=== PATIENT | female | born 1955 | race Caucasian/White ===

== ENCOUNTER → 2021-02-05 09:05 | Outpatient (CLI) | payer MEDICARE, SELFPAY ==
[2021-02-05] MEDS: COVID-19 VACC #1, MRNA(MOD) 100 MCG/0.5 ML VIAL IM (09:16)
== END ==
PROVIDERS: Visit Provider Internal Medicine
DX: Z23 Encounter for immunization (principal)
CPT/HCPCS: 0011A; 91301

== ENCOUNTER → 2021-03-06 09:54 | Outpatient (CLI) | payer MEDICARE, SELFPAY ==
[2021-03-06] MEDS: COVID-19 VACC #2, MRNA(MOD) 100 MCG/0.5 ML VIAL IM (10:09)
== END ==
PROVIDERS: Visit Provider Internal Medicine
DX: Z23 Encounter for immunization (principal)
CPT/HCPCS: 0012A; 91301

== ENCOUNTER → 2021-03-12 18:49 | Outpatient (CLI) | payer OTHER, SELFPAY ==
[2021-03-12 19:33] LABS: COVID19 -Nasal RAPID Negative (Negative)
== END ==
PROVIDERS: Visit Provider Physician Assistant
DX: J34.89 Other specified disorders of nose and nasal sinuses (principal); Z20.822 Contact with and (suspected) exposure to COVID-19
CPT/HCPCS: 87635

== ENCOUNTER → 2021-04-04 10:21 | Outpatient (CLI) | payer MEDICARE, MEDICAID, SELFPAY ==
[2021-04-04 11:36] LABS: Add Manual Diff / Slide Review NO; Basophils Absolute Auto 100 /uL (0-100); Eosinophils Absolute Auto 300 /uL (0-450); Eosinophils Percent Auto 2.5 % (2-4); Hemoglobin 12.1 g/dL (12.0-16.0); Lymphocytes Absolute Auto 2800 /uL (1100-4500); Lymphocytes Percent Auto 26.8 % (25-40); Mean Corpuscular HGB Conc 32.7 % (30-36); Mean Corpuscular Hemoglobin 28.7 PG (26-34); Mean Corpuscular Volume 87.8 fL (80-100); Monocytes Absolute Auto 700 /uL (0-900); Monocytes Percent Auto 7.1 % (3-14); Neutrophils Absolute Auto 6500 /uL (1500-7000); Neutrophils Percent Auto 62.6 % (50-75); Platelet Count 237 X10^3/uL (150-400); Red Blood Cell Count 4.22 X10^6/uL (4.0-5.2); Red Cell Distribution Width 13.7 % (11.6-14.8); White Blood Cell Count 10.4 X10^3/uL (4.5-11.0)
[2021-04-04 11:44] LABS: Hemoglobin A1C% w Est Avg Glu 5.6 % (4.0-6.0)
[2021-04-04 12:10] LABS: Alanine Aminotransferase 27 IU/L (<35); Albumin 4.2 g/dL (3.5-5.0); Albumin Globulin Ratio 1.5 (1.0-2.8); Alkaline Phosphatase 80 U/L (38-126); Aspartate Aminotransferase 29 IU/L (14-36); BUN Creatinine Ratio 25.5 (6-22); Bilirubin Total 0.4 mg/dL (0.2-1.3); Blood Urea Nitrogen 14 mg/dL (7-17); Calcium 9.7 mg/dL (8.4-10.2); Carbon Dioxide 28 mmol/L (22-32); Chloride 106 mmol/L (98-107); Estimated Glomerular Filt Rate > 60.0 mL/min (>60); Globulin 2.8 g/dL (1.7-4.1); Glucose 93 mg/dL (80-110); HEMOLYSIS < 15 (0-50); Potassium 4.2 mmol/L (3.4-5.1); Sodium 140 mmol/L (137-145)
[2021-04-04 12:38] LABS: TSH w/ Reflex to FT4 0.34 uIU/mL (0.47-4.68)
[2021-04-04 12:41] LABS: Ferritin 33 ng/mL (11-264)
[2021-04-04 13:22] LABS: Magnesium 1.5 mg/dL (1.6-2.3)
[2021-04-04 13:53] LABS: Creatinine Urine Random 218.9 mg/dL
[2021-04-04 13:57] LABS: Free T4, Direct Thyroxine 1.01 ng/dL (0.78-2.19)
[2021-04-04 14:00] LABS: Microalbumi Creatinin Ratio Ur 6.3 ug/mg CR (<30); Microalbumin Urine Random 1.4 mg/dL (0-1.6)
[2021-04-04 14:10] LABS: Vitamin D 25 Hydroxy (D3) 30.6 ng/mL (30.0-100.0)
[2021-04-04 14:28] LABS: Folate 16.7 ng/mL (2.76-20.0); Vitamin B12 301 pg/mL (239-931)
[2021-04-05 17:42] LABS: Ionized Calcium 4.9 mg/dL (4.5-5.6); Zinc 74 ug/dL (44-115)
[2021-04-06 14:45] LABS: Vitamin B1 150.5 nmol/L (66.5-200.0)
== END ==
PROVIDERS: PCP Family Medicine; Visit Provider Family Medicine
DX: E66.01 Morbid (severe) obesity due to excess calories (principal); G47.33 Obstructive sleep apnea (adult) (pediatric); E11.69 Type 2 diabetes mellitus with other specified complication; Z68.41 Body mass index [BMI] 40.0-44.9, adult; Z71.3 Dietary counseling and surveillance; Z99.89 Dependence on other enabling machines and devices
CPT/HCPCS: 36415; 80053; 82043; 82306; 82330; 82570; 82607; 82728; 82746; 83036; 83735; 84425; 84439; 84443; 84630; 85025; 93005

== ENCOUNTER → 2021-04-26 13:36 | Outpatient (CLI) | payer MEDICARE, MEDICAID, SELFPAY ==
[2021-04-26 14:52] LABS: HEMOLYSIS < 15 (0-50); Iron 66 ug/dL (37-170)
[2021-04-26 14:58] LABS: Cholesterol 132 mg/dL (140-199); HDL Cholesterol 45 mg/dL (40-60); LDL Cholesterol Calculated 56 mg/dL (<100); Triglycerides 156 mg/dL (35-150)
[2021-04-26 15:02] LABS: Percent Iron Saturation 19 % (15-50); Total Iron Binding Capacity 340 ug/dL (265-497); Transferrin 262 mg/dL (206-381)
== END ==
PROVIDERS: PCP Family Medicine
DX: Z71.3 Dietary counseling and surveillance (principal)
CPT/HCPCS: 36415; 80061; 83540; 83550

== ENCOUNTER → 2021-07-12 14:26 | Outpatient (CLI) | payer MEDICARE, MEDICAID, SELFPAY ==
[2021-07-12 15:06] LABS: COVID19 -Nasal RAPID Negative (Negative)
== END ==
PROVIDERS: PCP Family Medicine; Visit Provider Nurse Practitioner
DX: Z20.822 Contact with and (suspected) exposure to COVID-19 (principal)
CPT/HCPCS: 87077; 87102; 87635

== ENCOUNTER → 2021-07-12 14:52 | Outpatient (CLI) | payer MEDICARE, MEDICAID, SELFPAY ==
[2021-07-13 13:16] LABS: HIV 1 & 2 Ab/Ag 4th Gen Combo NEGATIVE (NEGATIVE)
== END ==
PROVIDERS: PCP Family Medicine; Referring Provider Nurse Practitioner; Visit Provider Nurse Practitioner
DX: B37.0 Candidal stomatitis (principal); Z20.822 Contact with and (suspected) exposure to COVID-19
CPT/HCPCS: 36415; 87077; 87102; 87389; 87635